=== PATIENT | male | born 1960 ===

== ENCOUNTER 2018-10-26 17:29 | Outpatient (REF) | payer MEDICAID, SELFPAY ==
[2018-10-26 19:30] LABS: ALT 16 U/L (12-78); AST 13 U/L (15-37); Albumin 3.6 g/dL (3.4-5.0); Alkaline Phosphatase 75 U/L (46-116); Anion Gap 11.4 mmol/L (3-11); BUN 18 mg/dL (7-18); Bilirubin, Total 0.1 mg/dL (0.2-1.0); CO2 25.6 mmol/L (21.0-32.0); CREATININE 1.05 mg/dL (0.70-1.30); Calcium 9.1 mg/dL (8.5-10.1); Chloride 103 mmol/L (98-107); Glucose 93 mg/dL (70-100); Potassium 4.8 mmol/L (3.5-5.1); Sodium 140 mmol/L (136-145); Total Protein 7.4 g/dL (6.4-8.2)
[2018-10-26 19:32] LABS: HCT 42.7 % (40.0-50.0); HGB 13.4 g/dL (13.5-17.5); Mean Corp. HGB Concentration 31.4 g/dL (32.0-36.0); Mean Corpuscular Hemoglobin 28.3 pg (27.0-33.0); Mean Corpuscular Volume 90.3 fL (80-95); Mean Platelet Volume 10.4 fL (8.0-11.0); Platelet Count 404 x1000/uL (130-400); RBC 4.73 m/cumm (4.50-6.00); RBC Distribution Width 14.6 % (11.8-14.1); White Blood Cell Count 10.58 k/cumm (4.4-10.8)
[2018-10-28 10:46] LABS: HIV-1/2 Ag & Ab Screen Negative (NEGAT)
[2018-10-28 11:36] LABS: Hepatitis C Ab w Rflx HCV PCR Negative (NEGAT)
[2018-10-28 12:30] LABS: Syphilis Serology (RPR) Negative (Negative)
[2018-10-28 13:02] LABS: Chlamydia Result Negative; GC Result Negative; Specimen Description URINE
[2018-10-29 10:01] LABS: Codeine Negative ng/mL (Cutoff: 25); Dihydrocodeine 178 ng/mL (Cutoff: 25); Hydrocodone 145 ng/mL (Cutoff: 25); Hydromorphone 50 ng/mL (Cutoff: 25); Morphine Negative ng/mL (Cutoff: 25); Naloxone Negative ng/mL (Cutoff: 25); Norhydrocodone 570 ng/mL (Cutoff: 25); Noroxycodone Negative ng/mL (Cutoff: 25); Noroxymorphone Negative ng/mL (Cutoff: 25); Opiates Interpretation Positive.
[2018-11-01 13:08] LABS: Amobarbital Negative; Barbiturates Interpretation Negative.; Butalbital Negative; Pentobarbital Negative; Secobarbital Negative
== END 2018-10-26 17:49 ==
LOC: NCHCN 17:29
PROVIDERS: PCP Physician Assistant Medical; Visit Provider Physician Assistant Medical
DX: K29.70 Gastritis, unspecified, without bleeding (principal); R10.84 Generalized abdominal pain; Z11.3 Encounter for screening for infections with a predominantly sexual mode of transmission; Z11.4 Encounter for screening for human immunodeficiency virus [HIV]; K42.9 Umbilical hernia without obstruction or gangrene; Z11.59 Encounter for screening for other viral diseases; F11.20 Opioid dependence, uncomplicated
CPT/HCPCS: 80053; 80361; 85027; 86803; 87389; 87491; 87591; 80345; 86592